=== PATIENT | female | born 1995 | race Caucasian/White ===

== ENCOUNTER 2024-12-11 23:26 | Emergency (ER) | payer MEDICAID, SELFPAY ==
--- NOTE | ~2024-12-11 | CT_ITS ---
CLINICAL INDICATION: Epigastric pain COMPARISON: None. TECHNIQUE: Multiple contiguous axial images of the abdomen and pelvis were performed following the ad ministration of with 100 mL Omnipaque-350 intravenous contrast The dose-length product (DLP) was 1352.44 mGy-cm. Automated exposure control and iterative reconstruction technique were employed. FINDINGS/OBSERVATIONS: Visualized lower thorax: The bilateral lung bases are clear. The heart is of normal size, without pericardial effusion. Small hiatal hernia is present. Liver: The liver enhances homogeneously and is enlarged measuring 19 cm in longitudinal dimension. Gallbladder and biliary system: The gallbladder is distended, with surrounding inflammatory change. No gallbladder wall thickening or pericholecystic fluid. Pancreas: The pancreas enhances homogeneously without ductal dilatation. Spleen: The spleen enhances homogeneously and is not enlarged measuring 8 cm in longitudinal dimension. Kidneys: The bilateral kidneys enhance symmetrically without hydronephrosis or renal calculi. Adrenal glands: Unremarkable. Gastrointestinal tract: Trace fecal stasis. Appendix: The air-filled appendix is of normal caliber (axial series, images 134 through 146). Vasculature: Unremarkable. Lymph nodes: No pathologically enlarged or morphologically suspicious lymph nodes within the retroperitoneum or at the root of the mesentery. Pelvic structures: The bladder is distended, and otherwise unremarkable. The uterus is anteverted and anteflexed Body wall and musculoskeletal: Small fat-containing umbilical hernia. Recent Pfannenstiel incision demonstrates inflammatory change along the anterior margin of the lower abdomen, without periprocedural seroma. No significant degenerative disease within the lower thoracic or lumbosacral spine. IMPRESSION: Findings consistent with biliary colic versus acute cholecystitis, as detailed above. Hepatic enlargement. Reviewed, dictated and finalized at location A. K PILER
--- NOTE | ~2024-12-11 | XR_ITS ---
CHEST RADIOGRAPH CLINICAL HISTORY: epigastric pain . COMPARISON: None available TECHNIQUE: Single portable view of the chest. FINDINGS The cardiomediastinal silhouette is unremarkable. The lungs are clear. Visualized osseous structures and soft tissues are unremarkable. IMPRESSION: No focal infiltrate or effusion. Reviewed, dictated and finalized at location A. NICS TEST TECHNICIAN
[2024-12-11 23:43] VITALS: BP 130/90; PULSE 88; RESP 18; TEMP 36.6; O2SAT 100
[2024-12-12 00:06] VITALS: BP 128/87; PULSE 83; RESP 15; O2SAT 100
--- OUTSIDE RECORDS SUMMARY | 2024-12-12 02:05 | XMS_ITS | Clinical Summary ---
Author Organization [facility] Address [address] [place] [address] Care Team Providers Care Janitorial Manager Name Role Phone No, Physician Primary Care Provider [phone] Allergies No known active allergies Social History Tobacco Use Types Packs/Day Years Used Date Smoking Tobacco: Never Assessed Personal Safety Answer Date Recorded Have you ever been in or are you currently in a harmful physical or emotional relationship or is someone making you feel afraid or unsafe? Denies 05/21/2024 Comments Unknown Sex and Gender Information Value Date Recorded Sex Assigned at Not on file Legal Sex Female 5:55 AM CDT Gender Identity Not on file Sexual Orientation Not on file Last Filed Vital Signs Vital Sign Reading Time Taken Comments Blood Pressure 122/94 05/21/2024 5:59 AM CDT Pulse 92 05/21/2024 5:57 AM CDT Temperature 36.4 C (97.5 F) 05/21/2024 5:57 AM CDT Respiratory Rate 18 05/21/2024 5:57 AM CDT Oxygen Saturation 98% 05/21/2024 5:57 AM CDT Inhaled Oxygen Concentration - - Weight 90.7 kg (200 lb) 05/21/2024 5:57 AM CDT Height 165.1 cm (5' 5 ) 05/21/2024 5:57 AM CDT Body Mass Index 33.28 05/21/2024 5:57 AM CDT Plan of Treatment Health Maintenance Due Date Last Done Comments Cervical Cancer Screening 1993 Depression Screening 1993 Hepatitis C Screening 1993 Varicella Vaccines (2 of 2 - 2-dose childhood series) 07/12/1999 04/19/1999 DTaP/Tdap/Td Vaccine (6 - Tdap) 2004 04/19/1999, 04/14/1995, 08/08/1994, Additional history exists Regular Well Visit/Exam 18-64 2011 Influenza Vaccine (#1) 2024 HPV Vaccines Aged Out No longer eligi ble based on patient's age to complete this topic Pneumococcal vaccine <65 Aged Out No longer eligible based on patient's age to complete this topic Insurance [facility] [place] [address] [place] [address] DIVISION Care Teams Janitorial Manager Relationship Specialty Start Date End Date No, Physician PCP - General 05/21/24
--- OUTSIDE RECORDS SUMMARY | 2024-12-12 02:05 | XMS_ITS | Clinical Summary ---
Author Organization [facility] Address [address] [place] [address] Phone Care Team Providers Care Fashion Model Name Role Phone Unavailable Primary Care Provider Unavailabl e Allergies No known active allergies Medications VIT-IRON FUM-FOLIC AC ORAL Take by mouth. Activ e NIFEdipine (PROCARDIA XL) 60 mg Extended Release 24 hour tablet Take 1 Tablet (60 mg) by mouth every 12 hours. 120 Tablet 1 11/16/19 25 Active Additional Information Patient taking differently:60 mg Oral EVERY 12 HOURS,Taking one a day, Reported on 11/23/2024 oxyCODONE (ROXICODONE) 5 mg tabletIndicati ons:H/O section Take 1 Tablet (5 mg) by mouth every 4 hours as needed for Pain. Max Daily Amount: 30 mg 20 Tablet 11/16/19 25 Active NIFEdipine (PROCARDIA XL) 60 mg Extended Release 24 hour tablet Take 1 Tablet (60 mg) by mouth every 12 hours. 120 Tablet 1 5 1:13 PM ELECTRONIC OPERATOR 11/16/19 25 Active oxyCODONE (ROXICODONE) 5 mg tablet Take 1 Tablet (5 mg) by mouth every 6 hours as needed. Max Daily Amount: 20 mg 15 Tablet 5 6:00 PM ELECTRONIC OPERATOR 11/17/19 25 Active famotidine (PEPCID) 10 mg tablet Take 30 mg by mouth 2 times daily. 025 Discontinued Active Problems Problem Noted Date Diagnosed Date Hypertension in , p re-eclampsia, severe, delivered/ 11/23/2024 S/P section 11/23/2024 History of delivery 11/23/2024 affected by intrau terine growth restriction (IUGR) 11/23/2024 care following delivery 10/28 Encounter for blood typing 11/14/2024 Encounters Date Type Department Care Team Description 12/08/2024 Chart Note [facility] Maternal and Medicine - [facility] [place] [address] [place] [phone] Philly Sanchez, RN 11/30/2024 Telephone [facility] M[facility] and Medicine - [facility] [place] [facility] [address] [place] [phone] Philly Sanchez, RN Blood Pressure Check 11/29/2024 Encounter [facility] [address] [place] [address] 11/29/2024 Chart Note [facility] Maternal and Medicine - Medical [place] [address] [place] [phone] Philly Sanchez RN Hypertension 11/25/2024 Encounter [facility] [address] [place] [address] 11/23/2024 10:00 AM ELECTRONIC OPERATOR Office Visit [facility] Maternal and Medicine - [facility] [place] [address] [place] [phone] Lu Friedman NP Hypertension in , pre-eclampsia, severe, delivered/ (Primary Dx); S/P section; care following delivery; History of delivery; affected by intrauterine growth restriction (IUGR) 11/22/2024 Encounter [facility] [address] [place] [address] 11/19/2024 Encounter [facility] [address] [place] [address] 11/18/2024 External Device Data [facility] ABSTRACTION Provider, Abstract 11/17/2024 External Device Data [facility] [place] Provider, Abstract 11/16/2024 External Device Data [facility] [place] Provider, Abstract 11/16/2024 External Device Data [facility] [place] Provider, Abstract 11/12/2024 9:02 PM ELECTRONIC OPERATOR Anesthesia Event [facility] Labor & [address] [place] [address] Melody Pimentel MD 11/12/2024 9:00 PM ELECTRONIC OPERATOR - 11/12/2024 10:53 PM ELECTRONIC OPERATOR Surgery [facility] [address] [place] [address] Karolina Mackenzie MD SECTION 11/11/2024 4:10 PM ELECTRONIC OPERATOR - 11/16/2024 11:30 AM ELECTRONIC OPERATOR Hospital Encounter [facility] Mother/Baby 6C [address] [place] [address] Joseph Ballard MD Encounter for blood typing Discharge Disposition: Home or Self Care 11/11/2024 2:50 PM ELECTRONIC OPERATOR - 11/11/2024 11:59 PM ELECTRONIC OPERATOR Hospital Encounter [facility] Maternal and Ground Floor [address] [place] [address] [place] [address] Joseph Ballard MD Discharge Disposition: Home or Self Care 11/11/2024 1:34 PM ELECTRONIC OPERATOR - 11/11/2024 11:59 PM ELECTRONIC OPERATOR Hospital Encounter [facility] Maternal and Ground Floor [address] [place] [address] [place] [address] Joseph Ballard MD Discharge Disposition: Home or Self Care 11/11/2024 Travel 11/04/2024 Orders Only [facility] Maternal and Ground Floor [address] [address] [place] [address] Joseph Ballard MD Dichorionic diamniotic twin in third trimester (Primary Dx); Oligohydramnios antepartum, third trimester, fetus 1 10/16/2024 10:19 AM ELECTRONIC OPERATOR - 10/16/2024 12:45 PM ELECTRONIC OPERATOR Hospital Encounter [facility] OB Triage [address] [place] [address] Joseph Ballard MD Discharge Disposition: Home or Self Care from Last 3 Months Family History Medical History Relation Name Comments Hypertension Father Stroke Father Relation Name Status Comments Father Social History Tobacco Use Types Packs/Day Years Used Date Smoking Tobacco: Former Cigarettes Tobacco Cessation:Counseling Given: Not Answered Alcohol Use Standard Drinks/Week Comments Never 0 (1 standard drink = 0.6 oz pur e alcohol) Feeling Safe Answer Date Recorded Are you in a relationship wi th someone who hurts you emotionally and/or physically? Patient unable to answer 11/11/2024 Food Insecurity Answer Date Recorded Social/Environmental Concerns No concerns Transportation Needs Answer Date Record ed Social/Environmental Concerns No concerns Housing Stability Answer Date Recorded Social/Environmental Concerns No concerns Utility Needs Answer Date Recorded Social/Environmental Concerns No concerns Comments No Sex and Gender Information Value Date Recorded Sex Assigned at Not on file Legal Sex Female 10:17 AM ELECTRONIC OPERATOR Gender Identity Not on file Sexual Orientation Not on file Last Filed Vital Signs Vital Sign Reading Time Taken Comments Blood Pressure 138/88 11/23/2024 10:16 AM ELECTRONIC OPERATOR Pulse 112 11/23/2024 10:16 AM ELECTRONIC OPERATOR Temperature 36.6 C (97.9 F) 11/16/2024 7:52 AM ELECTRONIC OPERATOR Respiratory Rate 18 11/16/2024 7:52 AM ELECTRONIC OPERATOR Oxygen Saturation 98% 11/23/2024 10: 16 AM ELECTRONIC OPERATOR Inhaled Oxygen Concentration - - Weight 114.4 kg (252 lb 3.2 oz) 025 10:16 AM ELECTRONIC OPERATOR Height 160 cm (5' 3 ) 11/11/2024 4:42 PM ELECTRONIC OPERATOR Body Mass Index 44.68 11/11/2024 4:42 PM ELECTRONIC OPERATOR Plan of Treatment Health Maintenance Due Date Last Done Comments DTAP/TDAP/TD VACCINES (6 - Tdap) 2004 04/19/1999, 04/14/1995, 08/08/1994, Additional history exists CERVICAL CANCER SCREENING 2023 INFLUENZA VACCINE (#1) 2024 HEPATITIS B VACCINES Completed 06/03/1994, 02/09/1994, 1993 HPV VACCINES Aged Out No longer eligi ble based on patient's age to complete this topic Procedures Procedure Name Priority Date/Time Associated Diagnosis Comments TELEMETRY REPORT 11/17/2024 1:01 PM ELECTRONIC OPERATOR TELEMETRY REPORT 11/17/2024 11:3 2 AM ELECTRONIC OPERATOR PATHOLOGY Pathology 11/12/2024 9:56 PM ELECTRONIC OPERATOR SC ANESTHESIA BLOCK PB PLACEHOLDER CHARGE Routine 11/12/2024 9:18 PM ELECTRONIC OPERATOR SECTION 11/12/2024 9:00 PM ELECTRONIC OPERATOR COMPREHENSIVE METABOLIC PANEL Timed Study 11/12/2024 8:09 AM ELECTRONIC OPERATOR CBC WITH DIFFERENTIAL Timed Study 11/12/2024 8:09 AM ELECTRONIC OPERATOR VERIFICATION BLOOD GROUP Stat 11/11/2024 8:30 PM ELECTRONIC OPERATOR Encounter for blood typing PREPARE RED BLOOD CELLS Routine 11/11/2024 8:24 PM ELECTRONIC OPERATOR PREPARE RED BLOOD CELLS Routine 11/11/2024 8:24 PM ELECTRONIC OPERATOR (BROTH-ENRICHED) GROUP B STREP DETECTION Routine 11/11/2024 6:31 PM ELECTRONIC OPERATOR TYPE AND SCREEN Stat 11/11/2024 6:05 PM ELECTRONIC OPERATOR CBC WITH DIFFERENTIAL Stat 11/11/2024 6:05 PM ELECTRONIC OPERATOR COMPREHENSIVE METABOLIC PANEL Stat 11/11/2024 6:05 PM ELECTRONIC OPERATOR URIC ACID Stat 11/11/2024 6:05 PM ELECTRONIC OPERATOR LACTATE DEHYDROGENASE Stat 11/11/2024 6:05 PM ELECTRONIC OPERATOR PROTEIN , RANDOM URINE Stat 11/11/2024 5:45 PM ELECTRONIC OPERATOR US MONITORING NST Routine 11/11/2024 4:13 PM ELECTRONIC OPERATOR Dichorionic diamniotic twin in third trimester Oligohydramnios antepartum, second trimester, fetus 1 IUGR (intrauterine growth restriction) affecting care of mother, first trimester, fetus 1 US OB FOLLOW UP PER FETUS Routine 11/11/2024 4:12 PM ELECTRONIC OPERATOR Dichorionic diamniotic twin in third trimester Oligohydramnios antepartum, second trimester, fetus 1 CBC WITHOUT DIFFERENTIAL Stat 10/16/2024 10:45 AM ELECTRONIC OPERATOR URINALYSIS W/REFLEX MICROSCOPIC Stat 10/16/2024 10:45 AM ELECTRONIC OPERATOR URINE CULTURE Routine 10/16/2024 10:45 AM ELECTRONIC OPERATOR VAGINOSIS/VAGINITIS PANEL BASIC Routine 10/16/2024 10:45 AM ELECTRONIC OPERATOR from Last 3 Months Results * TELEMETRY REPORT (11/17/2024 1:01 PM ELECTRONIC OPERATOR) Only the most recent of2 resultswithin the time period is included. us Provider Scanning ECG ORDERABLES Final Result * PATHOLOGY (11/12/2024 9:56 PM ELECTRONIC OPERATOR) CASE REPORT Surgical Pathology Report Case: [id number] Authorizing Provider: Karolina Mackenzie MD Collected: 11/12/2024 09:56 PM Ordering Location: [facility] Received: 11/15/2024 08:25 AM Labor & Pathologist: Karolina Bright MD Specimens: A) - Placenta B) - Placenta 2:15 PM ELECTRONIC OPERATOR [facility] - [facility] FINAL DIAGNOSIS Placenta, single clamped baby B, section: - 1 of separate, diamniotic dichorionic twin placentas with three-vessel umbilical cord and mature chorionic villi with 10% circummargination - Intervillous thrombohematomas x 2 (0.4 and 0.5 cm), representing less than 5% of placenta - Placental weight of 305 g in the 10th percentile for gestational age Placenta, no clamp baby A, section - 1 of separate, diamniotic dichorionic twin placentas with three-vessel umbilical cord and mature chorionic villi with 10% circummargination - Villous infarctions x 3, representing less than 5% of placenta - Placental weight of 219 g less than 10th percentile for gestational age 01 2:15 PM ELECTRONIC OPERATOR [facility] [employer] [facility] at 1415 ELECTRONIC OPERATOR GROSS DESCRIPTION Received is a single container labeled Luda Saavedra, placenta and additionally labeled no micro is a di/di twin placenta with 2 separate discs. No dividing membranes are definitively identified. The umbilical cords are differentiated by a single plastic clamp on 1 cord and no clamp on the other cord. The disc with the single clamped umbilical cord is 18.5 x 14 x 3.5 cm with a trimmed weight of 305 g that includes the attached umbilical cord. The 17 cm long by 1.2 to 1.8 cm in diameter umbilical cord displays normal torsion, contains 3 vessels, and has an eccentric insertion that is 2 cm from the nearest placental margin. There are 2 pieces of edematous single clamped cord in the container that are 8 cm in length by 1.8 to 2.2 cm in diameter and 17.5 cm in length by 1.4 to 1.6 cm in diameter. The potts-pink, translucent, glistening membranes have a 90% marginal insertion, 10% circummarginate insertion, and a point of rupture that is 1.5 cm from the nearest disc edge. The surface is bluegray and unremarkable. The maternal surface has a few superficial areas of disruption, however when reconstructed appears complete. Sectioning reveals red, congested, spongy parenchyma with 2, white-potts parenchymal lesions that are 0.5 and 0.8 cm in greatest dimension. The lesions occupy less than 5% of the parenchyma. Etiquette Teacher sections are submitted as follows: A1-membranes and umbilical cord; A2-parenchymal lesion; A3 and A4-central placenta. The disc with the unclamped umbilical cord is 20 x 15 x 2.5 cm with a trimmed weight of 219 g, including the attached umbilical cord. The umbilical cord is 12.5 cm in length by 1 cm in diameter, displays normal torsion, contains 3 vessels, and has an eccentric insertion that is 1 cm from the nearest placental margin. There are 2 additional pieces of unclamped cord in the container that are 22 cm in length by 1 cm in diameter and 5 cm in length by 1.2 cm in diameter. The pink-red, translucent, glistening membranes have a 90% marginal insertion, 10% circummarginate insertion, and a point of rupture that is 1.5 cm from the nearest disc edge. The surface is blue to pink-lagunas and unremarkable. The maternal surface has a few superficial areas of disruption, however when reconstructed appears complete. There are 3 yellow-potts, flat, rubbery maternal surface lesions that are 0.8, 1.2, and 1.5 cm in greatest dimension, have a thickness of 0.4 to 0.5 cm and occupy 5% or less of the parenchyma. Sectioning reveals red, congested, spongy parenchyma with no discrete parenchymal lesions. Etiquette Teacher sections are submitted as follows: B1-membranes and umbilical cord; B2-maternal surface lesion; B3 and B4-central placenta. [facility] 5 2:15 PM [facility] MICROSCOPIC DESCRIPTION The slides are labeled [id number] and Luda Saavedra. Sections from the single clamp umbilical cord confirm 3 vessels without inflammation. The amnion and chorion lack inflammation. The villi are mature and without inflammation. The parenchymal lesion is a thrombohematoma. The remaining villi are mature and without inflammation. Sections from the unclamped umbilical cord also confirm 3 vessels without inflammation. The amnion and chorion lack inflammation. There is a subdecidual villous infarction. The remaining villi are mature and without inflammation. 5 2:15 PM ELECTRONIC OPERATOR [facility] OPERATIVE PROCEDURE 1: SECTION 5 2:15 PM ELECTRONIC OPERATOR [facility] CLINICAL INFORMATION A IUP@33w3d. Primary c/s for Pre-E w Severe features Baby A - no clamps Baby B - 1 clamp IUP@33w3d. Primary c/s for Pre-E w Severe features Baby A - no clamps Baby B - 1 clamp 5 2:15 PM ELECTRONIC OPERATOR [facility] COMMENT Special stain, immunohistochemical, and/or in situ hybridization results are interpreted with controls that demonstrate appropriate staining reactions. Note on use of immunohistochemistry reagents and in situ hybridization probes: These tests were developed and their performance characteristics determined by [facility], Department of Laboratory Medicine. It has not been cleared or approved by the U.S. Food and Drug Administration. The FDA has determined that such clearance or approval is not necessary. The test is used for clinical purposes. It should not be regarded as investigational or for research. This laboratory is certified to perform high complexity testing. Frozen section/operating room consultation, gross examination and dissection, and case sign out may have been performed in part or completely in the following laboratories: [facility], CLIA #[id number] [address] [place] [address] [facility], [place] #[id number] [address] [place] [address] [facility], CLIA #[id number] [address] [place] [address] This report was created with the [employer] voice-activated dictation system. Inherent to this system is the possibility of syntax, grammar, punctuation and other errors that could impact the interpretation of the report. If there are interpretative questions about aspects of this report, please contact the performing pathologist. 2:15 PM ELECTRONIC OPERATOR [facility] Tissue SPECIMEN FROM PLACENTA / Unknown Collection / Unknown 11/12/2024 9:56 PM ELECTRONIC OPERATOR 11/15/2024 8:25 AM ELECTRONIC OPERATOR Comment:IUP@33w3d. Primary c /s for Pre-E w Severe features Baby A - no clamps Baby B - 1 clamp Tissue specimen (specimen) SPECIMEN FROM PLACENTA / Unknown 11/12/2024 9:56 PM ELECTRONIC OPERATOR 11/15/2024 8:26 AM ELECTRONIC OPERATOR Karolina Mackenzie MD PATHOLOGY/CYTOLOGY ORDERABLES Final Result [id number] [address] [place] [address] * SC ANESTHESIA BLOCK PB PLACEHOLDER CHARGE (11/12/2024 9:18 PM ELECTRONIC OPERATOR) Narrative Gregory Scales CRNA - 11/12/2024 9:18 PM ELECTRONIC OPERATOR Gregory Scales CRNA 11/12/2024 9:18 PM Spinal Block Patient location during procedure: OB Reason for block: primary anesthetic Staffing Performed: SPANISH INSTRUCTOR/CAA Authorized by: Melody Piemntel MD Performed by: Gregory Scales CRNA Preanesthetic Checklist Completed: patient identified, IV checked, risks and benefits discussed, surgical consent, monitors and equipment checked, pre-op evaluation and timeout performed Spinal Hand hygiene performed prior to procedure Patient was prepped and draped in usual sterile fashion Time out performed Mask worn Patient position: Sitting Prep: ChloraPrep and site prepped and draped Local Anesthetic: Lidocaine 1% without epinephrine Patient monitoring: Continuous pulse oximetry, EKG and Non-invasive blood pressure Approach: Midline Location: L3-4 Injection Technique: Single-shot Davidson Identification: palpation technique Number of Attempts: 1 Spinal Needle Needle type: Pencil-tip Needle gauge: 25 G Needle length: 9 cmCSF visualized Assessment Sensory Level: T6 No paresthesia Events: easy and well tolerated Outcome: Complete Secured with: N/A Melody Pimentel MD PROCEDURE/MINOR SURGICAL ORDERAB LES Final Result * (ABNORMAL) CBC WITH DIFFERENTIAL (11/12/2024 8:09 AM ELECTRONIC OPERATOR) Only the most recent of2 resultswithin the time period is included. WBC 11.4(H) 4.0 - 9.8 K/uL 11/12/2024 8:[address] [facility] RBC 3.94 3.90 - 4.90 M/uL 11/12/2024 8:[address] [facility] HEMOGLOBIN 11.3(L) 11.8 - 14.8 g/dL 11/12/2024 8:[address] [facility] HEMATOCRIT 34.3(L) 35.5 - 44.0 % 11/12/2024 8:[address] [facility] MCV 87.1 82.0 - 99.0 fL 11/12/2024 8:[address] [facility] MCH 28.7 27.2 - 32.6 pg 11/12/2024 8:[address] [facility] MCHC 32.9 31.5 - 35.5 g/dL 11/12/2024 8:[address] [facility] RDW 13.2 11.5 - 14.5 % 11/12/2024 8:28 AM ELECTRONIC OPERATOR [email or web address] LABORATORY SERVICES - . [facility] RDW-STDEV 41.8 37.1 - 48.7 fL 11/12/2024 8:28 AM [facility] [email or web address] LABORATORY SERVICES - . [place] PLATELETS 206 140 - 350 K/uL 11/12/2024 8:28 AM [facility] [email or web address] LABORATORY SERVICES - [facility] MPV 13.0(H) 9.3 - 12.4 fL 11/12/2024 8:28 AM [facility] [email or web address] LABORATORY SERVICES - . [place] NEUTROPHILS 92 % 11/12/2024 8:28 AM [facility] [email or web address] LABORATORY SERVICES - [facility] [place] LYMPHOCYTES 7 % 11/12/2024 8:28 AM ELECTRONIC OPERATOR [email or web address] LABORATORY SERVICES - [facility] [place] MONOCYTES 1 % 11/12/2024 8:28 AM ELECTRONIC OPERATOR [email or web address] LABORATORY SERVICES - . [place] EOSINOPHILS 0 % 11/12/2024 8:28 AM [facility] [email or web address] LABORATORY SERVICES - [facility] [place] BASOPHILS 0 % 11/12/2024 8:28 AM ELECTRONIC OPERATOR [email or web address] LABORATORY SERVICES - . [facility] IMMATURE GRANULOCYTES 1 % 11/12/2024 8:28 AM [facility] [email or web address] LABORATORY SERVICES - . [facility] Comment:IG (Immature Granulo cyte) count includes Metamyelocytes, Myelocytes, and Promyelocytes NEUTROPHIL ABSOLUTE 10.45(H) 1.90 - 7.00 K/uL 11/12/2024 8:28 AM [facility] [email or web address] LABORATORY SERVICES - . [facility] LYMPHOCYTE ABSOLUTE 0.78 0.70 - 4.50 K/uL 11/12/2024 8:28 AM ELECTRONIC OPERATOR [email or web address] LABORATORY SERVICES - . [facility] MONOCYTE ABSOLUTE 0.12 0.10 - 1.30 K/uL 11/12/2024 8:28 AM ELECTRONIC OPERATOR [email or web address] LABORATORY SERVICES - [facility] [place] EOSINOPHIL ABSOLUTE 0.00 0.00 - 0.70 K/uL 11/12/2024 8:28 AM [facility] LABORATORY SERVICES - [facility] [place] BASOPHILS ABSOLUTE 0.01 0.00 - 0.20 K/uL 11/12/2024 8:28 AM [facility] [email or web address] LABORATORY SERVICES - . [facility] IMMATURE GRANULOCYTES ABSOLUTE 0.06(H) 0.00 - 0.03 K/uL 11/12/2024 8:28 AM [facility] [email or web address] LABORATORY SERVICES [facility]. [facility] Blood Venipuncture / Unknown 11/12/2024 8:09 AM ELECTRONIC OPERATOR 11/12/2024 8:15 AM ELECTRONIC OPERATOR Joseph Ballard MD HEMATOLOGY ORDERABLES Final Result [facility] [employer] [id number] [address] [place] [address] * (ABNORMAL) COMPREHENSIVE METABOLIC PANEL (11/12/2024 8:09 AM ELECTRONIC OPERATOR) Only the most recent of2 resultswithin the time period is included. SODIUM 135(L) 136 - 145 mmol/L 11/12/2024 9:10 AM [facility] [email or web address] LABORATORY SERVICES - . [facility] POTASSIUM 4.2 3.5 - 5.0 mmol/L 11/12/2024 9:10 AM [facility]. [facility] CHLORIDE 104 98 - 107 mmol/L 11/12/2024 9:10 AM [facility]. [place] CO2 17(L) 22 - 29 mmol/L 11/12/2024 9:10 AM [facility] CALCIUM 8.5(L) 8.6 - 10.2 mg/dL 11/12/2024 9:10 AM [facility]. [facility] BUN 5(L) 6 - 20 mg/dL 11/12/2024 9:[address] [facility] [employer] [facility]. [facility] CREATININE 0.42(L) 0.51 - 0.95 mg/dL 11/12/2024 9:10 AM [facility]. [facility] GLUCOSE 139(H) 74 - 99 mg/dL 11/12/2024 9:10 AM [facility]. [facility] TOTAL PROTEIN 6.4(L) 6.7 - 8.6 g/dL 11/12/2024 9:10 AM [facility]. [facility] ALBUMIN 3.4(L) 3.5 - 5.2 g/dL 11/12/2024 9:10 AM [facility] [employer] [facility]. [facility] BILIRUBIN TOTAL <0.2(L) 0.3 - 1.2 mg/dL 11/12/2024 9:10 AM [facility] ALKALINE PHOSPHATASE 205(H) 35 - 104 U/L 11/12/2024 9:10 AM [facility] AST 25 <33 U/L 11/12/2024 9:10 AM [facility] Comment:Hemolysis present. R esult may be falsely elevated. ALT 13 <34 U/L 11/12/2024 9:10 AM [facility] GFR >60 >=60 mL/min/1.7 3 sq meter 11/12/2024 9:10 AM [facility] Comment:eGFR calculated with 2020 CKD-EPI equation. Vegetarian diet, extremely high or low muscle mass, and may affect results. Cystatin C with Glomerular Filtration Rate is a suitable alternative for these patients. ANION GAP 14 8 - 16 mmol/L 11/12/2024 9:10 AM [facility] Blood Venipuncture / Unknown 11/12/2024 8:09 AM ELECTRONIC OPERATOR 11/12/2024 8:15 AM ELECTRONIC OPERATOR Narrative [facility] - 11/12/2024 9:10 AM ELECTRONIC OPERATOR Samples containing indocyanine green cause interferences on Total and/or Direct Bilirubin and must not be measured. Joseph Ballard MD CHEMISTRY ORDERABLES F inal Result [facility]# [id number] 5 [facility] [place] [id number] * VERIFICATION BLOOD GROUP (11/11/2024 8:30 PM ELECTRONIC OPERATOR) ABO GROUP O 11/11/2024 9:54 PM [facility] RH (D) TYPE Positive 11/11/2024 9:54 PM [facility] Blood Venipuncture / Unknown 11/11/2024 8:30 PM ELECTRONIC OPERATOR 11/11/2024 8:37 PM ELECTRONIC OPERATOR Yoon Inman MD BLOOD BANK ORDERABLES Final Result Performing Organization Address [facility]/ZIP Co de Phone Number [facility] SERVICES -- [facility]# [id number] [address] [place] [address] * PREPARE RED BLOOD CELLS (11/11/2024 8:24 PM ELECTRONIC OPERATOR) Only the most recent of2 resultswithin the time period is included. Pathologist [facility] COMPONENT TYPE [id number] [facility] SERVICES -- [facility] COMPONENT IDENTIFICATION [id number] [facility] -- [facility] UNIT ABO O [facility] -- [facility] UN[facility] RH POS [facility] SERVICES -- [facility] CROSSMATCH Compatible [facility] SERVICES -- [facility] COMPONENT STATUS Returned [facility] LABORATORY SERVICES -- [facility] COMPONENT EXPIRATION DATE/TIME [facility] -- [facility] COMPONENT CODING SYSTEM 5100 [facility] -- [facility] VOLUME, BLOOD PRODUCT 350 [facility] -- [facility] 11/11/2024 8:24 PM ELECTRONIC OPERATOR Joseph Ballard MD LAB TRANSFUSION ORDERA BLES Edited Result - Final Performing Organization Address [facility] Co de Phone Number [facility] [id number] [address] [place] [address] * (ABNORMAL) (BROTH-ENRICHED) GROUP B STREP DETECTION (11/11/2024 6:31 PM ELECTRONIC OPERATOR) [facility] STREPTOCOCCUS GROUP B AMPLIFIED PROBE RESULT Detected( A) Not Detected 11/12/2024 4:19 PM ELECTRONIC OPERATOR [facility] SERVICES - [facility] Genital (Vaginal/rectal) Collection / Unknown 11/11/2024 6:31 PM ELECTRONIC OPERATOR 11/11/2024 6:40 PM ELECTRONIC OPERATOR Narrative [facility] SERVICES - [facility] - 11/12/2024 4:19 PM ELECTRONIC OPERATOR Results called to Ileana Alfredo RN (STLO Antepartum 7) on 11/12/2024 at 4:19 PM and read back verified. Streptococcus Group B is predictably susceptible to ampicillin, penicillin, and cefazolin, but may be resistant to erythromycin and/or clindamycin. This test was developed and its performance characteristics determined by [facility]. It has not been cleared by U.S. Food and Drug Administration.The FDA has determined that such clearance or approval is not necessary. This test is used for clinical purposes. It should not be regarded as investigational or for research.This laboratory is certified under the Clinical Laboratory Improvement Amendments of 1988 (CLIA-88) as qualified to perform high complexity clinical laboratory testing. Joseph Ballard MD MICROBIOLOGY - GENERAL ORDERABLES Final Result Performing Organization Address [facility]/ZIP Co de Phone Number [facility] CLIA# [id number] [address] [place] [address] * TYPE AND SCREEN (11/11/2024 6:05 PM ELECTRONIC OPERATOR) ABO GROUP O 11/11/2024 8:39 PM ELECTRONIC OPERATOR [facility] -- [facility] RH (D) TYPE Positive 11/11/2024 8:39 PM ELECTRONIC OPERATOR [facility] [facility] -- [facility] ANTIBODY SCREEN Negative 11/11/2024 8:39 PM ELECTRONIC OPERATOR [facility] Blood Venipuncture / Unknown 11/11/2024 6:05 PM ELECTRONIC OPERATOR 11/11/2024 6:27 PM ELECTRONIC OPERATOR Joseph Ballard MD BLOOD BANK ORDERABLES Edited Result - Final [facility] CLIA# [id number] [address] [id number] * URIC ACID (11/11/2024 6:05 PM ELECTRONIC OPERATOR) URIC ACID 4.6 2.4 - 5.7 mg/dL 11/11/2024 7:25 PM ELECTRONIC OPERATOR [facility] [facility] - [facility] Blood Venipuncture / Unknown 11/11/2024 6:05 PM ELECTRONIC OPERATOR 11/11/2024 6:27 PM ELECTRONIC OPERATOR Joseph Ballard MD CHEMISTRY ORDERABLES F inal Result Performing Organization Address City/[facility]/ZIP Co de Phone Number [facility] [facility] CLIA# [id number] [address] [place] [address] * (ABNORMAL) LACTATE DEHYDROGENASE (11/11/2024 6:05 PM ELECTRONIC OPERATOR) LD (LACTATE DEHYDROGENASE) 234(H) 135 - 214 U/L 11/11/2024 7:25 PM ELECTRONIC OPERATOR [facility] Blood Venipuncture / Unknown 11/11/2024 6:05 PM ELECTRONIC OPERATOR 11/11/2024 6:27 PM ELECTRONIC OPERATOR Joseph Ballard MD CHEMISTRY ORDERABLES F inal Result Performing Organization Address [facility]/ZIP Co de Phone Number [facility] [employer] [facility] CLIA# [id number] [address] [place] [address] * (ABNORMAL) PROTEIN/CREATININE RATIO, URINE (11/11/2024 5:45 PM ELECTRONIC OPERATOR) Pathologist [facility] PROTEIN CONCENTRATION 78(H) 0 - 20 mg/dL 11/11/2024 7:09 PM ELECTRONIC OPERATOR [facility] CREATININE, URINE 35.7 29.0 - 226.0 mg/dL 11/11/2024 7:09 PM ELECTRONIC OPERATOR [facility] [facility] Comment:Reference Range vari es with fluid intake and diet. PROTEIN/CREAT RATIO, URINE 2.18(H) 0.00 - 0.19 mg/mg Creatinine 11/11/2024 7:09 PM ELECTRONIC OPERATOR [facility] Urine URINE SPECIMEN OBTAINED BY CLEAN CATCH PROCEDURE / Unknown Collection / Unknown 11/11/2024 5:45 PM ELECTRONIC OPERATOR 11/11/2024 6:41 PM ELECTRONIC OPERATOR Narrative [facility] - 11/11/2024 7:09 PM ELECTRONIC OPERATOR The ACOG 2013 Guidelines recommend using a cutoff of >/= 0.30 protein/creatinine ratio for the diagnosis and management of preeclampsia. Joseph Ballard MD URINE ORDERABLES Final Result [facility]# [id number] [address] [place] [place] [address] * US MONITORING NST (11/11/2024 4:13 PM ELECTRONIC OPERATOR) Anatomical Region Laterality Modality Ultrasound 11/11/2024 3:38 PM ELECTRONIC OPERATOR Narrative 11/11/2024 3:57 PM ELECTRONIC OPERATOR [facility] NST ----- Pat. Name: LUDA SAAVEDRA Study Date: 11/11/2024 3:38pm Pat. NO: [id number] Referring MD: Site: [facility] Tape Controlled Machine Stitcher: : 1995 Age: 28 ----- INDICATION ----- Twin , Dichorionic/Diamniotic (Di/Di) Small for Dates Maternal Obesity (BMI>40) Complicating CODING ----- Diagnoses Z3A.33: Weeks of gestation O36.5930: Maternal care for other known or suspected poor growth O30.043: Twin , dichorionic/diamniotic O99.213: Obesity complicating Procedures 55698: NST/ monitoring 97470: NST/ monitoring MATERNAL ASSESSMENT ----- Physical Exam Blood pressure 145/99 mmHg. Heart rate 84 bpm Blood Pressure Profile: Right arm: # 1 149/90 mmHg, MAP 109.7 mmHg METHOD ----- EFM ----- Twin . Number of fetuses: 2 DATING ----- GA by prior assessment 33 w + 1 d KYLEE by prior assessment: 12/29/2024 Method of dating: Restore dating from previous exam Assigned: based on stated KYLEE, selected on 11/11/2024 Assigned GA 33 w + 1 d Assigned KYLEE: 12/29/2024 Fetus 1: NON STRESS TEST ----- NST interpretation: reactive. Test duration 34 min. Baseline FHR 145 bpm. Baseline variability: moderate. Accelerations: Present. Decelerations: Not present. Uterine activity: absent Fetus 2: NON STRESS TEST ----- NST interpretation: reactive. Test duration 34 min. Baseline FHR 145 bpm. Baseline variability: moderate. Accelerations: Present. Decelerations: Not present. Uterine activity: absent COMMENT ----- Nursing notes: Patient reports positive movement x 2 and no bleeding, leaking or saniya. Elevated BPx2. Patient denies headache, visual disturbances or swelling. The patient states this is a new finding for her. Dr. Worthy at patient's bedside to discuss plan of care. Plan for patient to be admitted to antepartum at this time. Dr. Ballard notified of patient's admission; charge nurse notified. IMPRESSION ----- 1. Twin dichorionic diamniotic twin with a gestational age of 33w 1d , based on the reported clinical dates. 2. NST reactive for A and B. Patient with mild range Bp elevation. No history of CHTN. Given FGR with elevated BP in twin , recommend admission for BP monitoring and preeclampsia evaluation. Consult for FGR was not completed in the [facility] since patient is being admitted. Please request inpatient MFM consultation inpatient if assistance in care is desired. Thank you for allowing us to participate in the care of this patient. Procedure Note Loyd Worthy MD - 11/11/2024 FATOU AIDN ----- Pat. Name:Maryanne SAAVEDRA Date:11/11/2024 3:38pm Pat. NO: [id number] MD: [facility]Félixographer: :1995Age:28 ----- INDICATION ----- Twin , Dichorionic/Diamniotic (Di/Di) Small for Dates Maternal Obesity (BMI>40) Complicating CODING ----- Diagnoses Z3A.33: Weeks of gestation O36.5930: Maternal care for other known orsuspected poor growth O30.043: Twin , dichorionic/diamniotic O99.213: Obesity complicating Procedures 22067: NST/ monitoring 96840: NST/ monitoring MATERNAL ASSESSMENT ----- Physical Exam Blood pressure 145/99 mmHg. Heart rate 84 bpm Blood Pressure Profile: Right arm: # 1 149/90 mmHg, MAP 109.7 mmHg METHOD ----- EFM ----- Twin . Number of fetuses: 2 DATING ----- GA by prior [id number] w + 1 d KYLEE by prior assessment:12/29/2024 Method of dating:Restore dating from previous exam Assigned:based on stated KYLEE, selected on 11/11/2024 Assigned GA33 w + 1 d Assigned KYLEE:12/29/2024 Fetus 1: NON STRESS TEST ----- NST interpretation: reactive. Test duration 34 min. Baseline FHR 145 bpm.Baseline variability: moderate. Accelerations: Present. Decelerations: Not present. Uterine activity: absent Fetus 2: NON STRESS TEST ----- NST interpretation: reactive. Test duration 34 min. Baseline FHR 145 bpm.Baseline variability: moderate. Accelerations: Present. Decelerations: Not present. Uterine activity: absent COMMENT ----- Nursing notes: Patient reports positive movement x 2 and nobleeding, leaking or saniya. Elevated BPx2. Patient denies headache, visual disturbances or swelling. The patient states this is anew finding for her. Dr. Worthy at patient's bedside to discuss plan of care. [facility] notified of patient's admission; charge nurse notified. IMPRESSION ----- 1. Twin dichorionic diamniotic twin with a gestational age of33w 1d , based on the reported clinical dates. 2. NST reactive for A and B. Patient with mild range Bp elevation. No history of CHTN. Given FGR with elevated BP in twin , recommend admission for BPmonitoring and preeclampsia evaluation. Consult for FGR was not completed in the [facility] since patient is beingadmitted. Please request inpatient MFM consultation inpatient if assistance in care is desired. Thank you for allowing us to participate in the care of this patient. us Joseph Ballard MD US ORDERABLES Final Result * US OB FOLLOW UP PER FETUS (11/11/2024 4:12 PM ELECTRONIC OPERATOR) Anatomical Region Laterality Modality Pelvis Ultrasound Narrative 11/11/2024 2:55 PM ELECTRONIC OPERATOR ST[facility] FOLLOW UP ----- Pat. Name: LUDA SAAVEDRA Study Date: 11/11/2024 1:46pm Pat. NO: [id number] Referring MD: Site: [facility] Tape Controlled Machine Stitcher: Doris Booth RDMS : 1995 Age: 28 ----- INDICATION ----- Twin , Dichorionic/Diamniotic (Di/Di) Small for Dates Baby A 13% on 11/03 scan Maternal Obesity (BMI>40) Complicating CODING ----- Diagnoses Z3A.33: Weeks of gestation O36.5930: Maternal care for other known or suspected poor growth O30.043: Twin , dichorionic/diamniotic O99.213: Obesity complicating Procedures 01379: Ultrasound, uterus, real time with image documentation, follow up, transabdominal approach per fetus. 2 54514: Umbilical Artery Doppler. 1 MATERNAL ASSESSMENT ----- Physical Exam Weight 111 kg. BMI 43.40 kg/m METHOD ----- Transabdominal ultrasound examination ----- Twin . Number of fetuses: 2 DATING ----- Method of dating: based on stated KYLEE GA by prior assessment 33 w + 1 d KYLEE by prior assessment: 12/29/2024 Ultrasound examination on: 11/11/2024 GA by U/S based upon: AC, BPD, EFW, Femur, HC GA by U/S 31 w + 4 d KYLEE by U/S: 01/09/2025 GA by U/S based upon (Fetus 2): AC, BPD, EFW, Femur, HC GA by U/S (Fetus 2) 32 w + 5 d KYLEE by U/S (Fetus 2): 01/01/2025 Assigned: based on stated KYLEE, selected on 11/11/2024 Assigned GA 33 w + 1 d Assigned KYLEE: 12/29/2024 Fetus 1: BIOMETRY ----- BPD 76.9 mm 30w 6d 2% Hadlock OFD 108.1 mm 35w 5d 94% Calos HC 301.0 mm 33w 3d 20% Hadlock AC 266.8 mm 30w 6d 4% Hadlock Femur 61.2 mm 31w 5d 10% Hadlock HC / AC 1.13 90% Nicolaides Weight Calculation: EFW 1,751 g 31w 0d 6% Hadlock EFW (lb,oz) 3 lb 14 oz EFW by Hadlock ([id number]) EFW discordance 14.9 % Extremities / Bony Struc Biometry: FL / BPD 0.80 FL / HC 0.20 FL / AC 0.23 Fetus 2: BIOMETRY ----- BPD 78.7 mm 31w 4d 8% Hadlock OFD 112.0 mm 38w 0d >99% Calos HC 306.2 mm 34w 1d 37% Hadlock AC 291.5 mm 33w 1d 52% Hadlock Femur 62.1 mm 32w 1d 16% Hadlock HC / AC 1.05 50% Nicolaides Weight Calculation: EFW 2,057 g 32w 3d 32% Hadlock EFW (lb,oz) 4 lb 9 oz EFW by Hadlock ([id number]) EFW discordance 14.9 % Head / Face / Neck Biometry: Outer IOD 49.6 mm 31w 0d 7% Calos Extremities / Bony Struc Biometry: FL / BPD 0.79 FL / HC 0.20 FL / AC 0.21 Fetus 1: GENERAL EVALUATION ----- Cardiac activity present. FHR 141 bpm. movements: present. Presentation: oblique inferior, left Placenta: posterior Umbilical cord: Cord vessels: 3 vessel cord. Insertion site: placental insertion: normal Amniotic fluid: Amount of AF: normal amount. MVP 3.1 cm Fetus 2: GENERAL EVALUATION ----- Cardiac activity present. FHR 145 bpm. movements: present. Presentation: transverse top Placenta: anterior Umbilical cord: Cord vessels: 3 vessel cord. Insertion site: placental insertion: normal Amniotic fluid: Amount of AF: normal amount. MVP 3.4 cm Fetus 1: DOPPLER ----- Umbilical Artery: PI 1.18 93% Brian RI 0.72 92% Brian PS 42.70 cm/s 23% Ebbing ED 11.26 cm/s TAmax 25.25 cm/s 10% Ebbing MD 10.77 cm/s S / D 3.51 90% Brian HR 161 bpm Fetus 1: ANATOMY ----- The following structures appear normal: Head / Neck Cranium. Heart / Thorax Cardiac rhythm. Diaphragm. Abdomen Stomach. Kidneys. Bladder. Fetus 2: ANATOMY ----- The following structures appear normal: Head / Neck Cranium. Midline falx. Cavum septi pellucidi. Cerebellum. Cisterna magna. Heart / Thorax 4-chamber view. Diaphragm. Abdomen Stomach. Kidneys. Bladder. Fetus 1: GROWTH OVERVIEW ----- Exam date GA BPD (mm) HC (mm) AC (mm) FL (mm) HL (mm) EFW (g) 11/11/2024 33w 1d 76.9 2% 301.0 20% 266.8 4% 61.2 10% 1,751 6% Fetus 2: GROWTH OVERVIEW ----- Exam date GA BPD (mm) HC (mm) AC (mm) FL (mm) HL (mm) EFW (g) 11/11/2024 33w 1d 78.7 8% 306.2 37% 291.5 52% 62.1 16% 2,057 32% COMMENT ----- Patient's name and date of were verified by the lab head prior to the exam IMPRESSION ----- -Dichorionic diamniotic twin living fetuses with a gestational age of 33w1d based on the reported dates. Fetus A: -Fetus A EFW of 6% with an AC of 4%. Growth restriction is present. -Umbilical artery doppler PI, RI and S/D are appropriate for gestational age. -The MVP of A is 3.1 cm which is normal for gestational age -Unremarkable limited anatomy for A -Placenta is posterior -Fetus A is in oblique inferior, left presentation Fetus B: -Fetus B EFW of 32% with an AC of 52% -The MVP of B is 3.4 cm which is normal for gestational age -Unremarkable limited anatomy for B -Placenta is anterior -Fetus B is in transverse top -The intertwin discordance is 14.9 % which is within acceptable range. -Detailed anatomic surveys cannot be completed due to advanced gestational age The ultrasound findings and limitations were discussed with the patient and all questions answered. Recommend: -Growth q2 weeks -Twice weekly testing -Dopplers q2 weeks -Timing of delivery to be determined after next sonogram assessing growth Thank you for allowing us to participate in the care of this patient. Joseph Ballard MD ORDERABLES Edited Result - Final * (ABNORMAL) VAGINOSIS/VAGINITIS PANEL BASIC (10/16/2024 10:45 AM ELECTRONIC OPERATOR) TRICHOMONAS VAGINALIS BY PCR Not Detected Not Detected 10/16/2024 1:02 PM ELECTRONIC OPERATOR [facility] BACTERIAL VAGINOSIS BY PCR Detected(A) Not Detected 10/16/2024 1:02 PM ELECTRONIC OPERATOR [facility] Nakaseomyces glabrata/Pichia kudriavzevii by PCR Not Detected Not Detected 10/16/2024 1:02 PM ELECTRONIC OPERATOR [facility] Comment:Nakaseomyces glabrat a formerly Luh glabrata and Pichia mingiacornellvii formerly Luh krusei LUH SPECIES Not Detected Not Detected 10/16/2024 1:02 PM [facility] [email or web address] LABORATORY SERVICES - [facility] Comment:Luh species incl udes: C albicans, C tropicalis, C parapsilosis and C dubliniensis Genital SPECIMEN FROM VAGINA / Unknown Collection / Unknown 10/16/2024 10:45 AM ELECTRONIC OPERATOR 10/16/2024 11:13 AM ELECTRONIC OPERATOR Joseph Ballard MD MICROBIOLOGY - GENERAL ORDERABLES Final Result [facility]# [id number] [address] [place] [address] * (ABNORMAL) URINALYSIS WITH REFLEX MICROSCOPIC (10/16/2024 10:45 AM ELECTRONIC OPERATOR) COLOR UA Pale Yellow Pale to Dark Yellow 10/16/2024 11:21 AM [facility] [email or web address] LABORATORY SERVICES - [facility] CLARITY UA Slightly Cloudy(A) Clear 10/16/2024 11:21 AM [facility] [email or web address] LABORATORY SERVICES - [facility] SPECIFIC GRAVITY UA 1.005 1.003 - 1.035 10/16/2024 11:21 AM [facility] [employer] LABORATORY SERVICES [facility] PH UA 7.0 5.0 - 8.0 10/16/2024 11:21 AM [facility] [email or web address] LABORATORY SERVICES [facility] LEUKOCYTE ESTERASE UA Trace(A) Negative 10/16/2024 11:21 AM [facility] [email or web address] LABORATORY SERVICES [facility] NITRITE UA Negative Negative 10/16/2024 11:21 AM [facility] [email or web address] LABORATORY SERVICES - [facility] PROTEIN UA Negative Negative 10/16/2024 11:21 AM [facility] [email or web address] LABORATORY SERVICES - [facility] GLUCOSE UA Negative Negative 10/16/2024 11:21 AM [facility] [email or web address] LABORATORY SERVICES - [facility] KETONES UA Negative Negative 10/16/2024 11:21 AM [facility] [email or web address] LABORATORY SERVICES [facility] UROBILINOGEN UA Normal <2.0 mg/dL 11:21 AM [facility] [email or web address] LABORATORY SERVICES - [facility] BILIRUBIN UA Negative Negative 10/16/2024 11:[address] [facility] [employer] [facility] - . [place] BLOOD UA Negative Negative 10/16/2024 11:21 AM [facility] WBC UA 3-5(A) 0 - 2 /hpf 10/16/2024 11:21 AM [facility] RBC UA 0-2 0 - 2 /hpf 10/16/2024 11:21 AM [facility] [employer] [facility] BACTERIA UA 1+(A) Negative /hpf 10/16/2024 11:21 AM [facility] [employer] [facility] EPITHELIAL CELLS, URINE 6-10(A) 0 - 5 /hpf 10/16/2024 11:21 AM [facility] [employer] [facility] - . [facility] Urine URINE SPECIMEN OBTAINED BY CLEAN CATCH PROCEDURE / Unknown Collection / Unknown 10/16/2024 10:45 AM ELECTRONIC OPERATOR 10/16/2024 10:53 AM ELECTRONIC OPERATOR Joseph Ballard MD URINE ORDERABLES Final Result [facility] [employer] [facility]# [id number] [address] [facility] [place] [address] * (ABNORMAL) CBC WITHOUT DIFFERENTIAL (10/16/2024 10:45 AM ELECTRONIC OPERATOR) WBC 10.9(H) 4.0 - 9.8 K/uL 10/16/2024 11:12 AM [facility] [employer] [facility]. [facility] RBC 4.09 3.90 - 4.90 M/uL 10/16/2024 11:12 AM [facility] [employer] [facility] HEMOGLOBIN 12.0 11.8 - 14.8 g/dL 10/16/2024 11:12 AM [facility] [employer] [facility]. [facility] HEMATOCRIT 36.1 35.5 - 44.0 % 10/16/2024 11:12 AM [facility] [employer] [facility]. [facility] MCV 88.3 82.0 - 99.0 fL 10/16/2024 11:12 AM [facility] Cam[employer] [facility]. [facility] MCH 29.3 27.2 - 32.6 pg 10/16/2024 11:[address] [facility] LABORATORY SERVICES - [facility] MCHC 33.2 31.5 - 35.5 g/dL 10/16/2024 11:[address] [facility] LABORATORY SERVICES - [facility] PLATELETS 241 140 - 350 K/uL 10/16/2024 11:[address] [facility] LABORATORY SERVICES - [facility] MPV 12.7(H) 9.3 - 12.4 fL 10/16/2024 11:12 AM [facility] [employer] LABORATORY SERVICES - . [place] RDW 12.9 11.5 - 14.5 % 10/16/2024 11:12 AM [facility] [employer] LABORATORY SERVICES - [facility] RDW-STDEV 41.4 37.1 - 48.7 fL 10/16/2024 11:12 AM [facility] [employer] LABORATORY SERVICES - [facility] Blood Venipuncture / Unknown 10/16/2024 10:45 AM ELECTRONIC OPERATOR 10/16/2024 10:53 AM ELECTRONIC OPERATOR Joseph Ballard MD HEMATOLOGY ORDERABLES Final Result [facility] [employer] [facility] CLIA# [id number] [address] [place] [address] * URINE CULTURE (10/16/2024 10:45 AM ELECTRONIC OPERATOR) CULTURE Polymicrobial growth consistent with normal urethral fab and/or colonizing bacteria 10/17/2024 1:[address] [facility] Urine URINE SPECIMEN OBTAINED BY CLEAN CATCH PROCEDURE / Unknown Collection / Unknown 10/16/2024 10:45 AM ELECTRONIC OPERATOR 10/16/2024 10:53 AM ELECTRONIC OPERATOR Joseph Ballard MD MICROBIOLOGY - GENERAL ORDERABLES Final Result [facility] CLIA# [id number] [address] [place] [address] from Last 3 Months Insurance [facility] [id number] RX [employer] Medicaid
--- OUTSIDE RECORDS SUMMARY | 2024-12-12 02:05 | XMS_ITS | Referral Summary ---
Author Organization [facility] al Address [address] [place] [address] Care Team Providers Care Kiln Charger Name Role Phone No, Physician Primary Care Provider [phone] Allergies No known active allergies Social History [...] 05/21/2024 5:57 AM CDT Plan of Treatment Not on file Insurance [place] [employer] [place] [employer] Care Teams Kiln Charger Relationship Specialty Start Date End Date No, Physician PCP - General 05/21/24
--- NOTE | 2024-12-12 02:09 | PC.NURSE ---
Pt refused IV, zofran, and fluids. pt states I just had an IV and i just want to get blood
[2024-12-12 02:11] VITALS: BP 130/84; PULSE 86; RESP 19; O2SAT 99
[2024-12-12 02:23] LABS: Basophils Percent Auto 0.3 % (0.2-1.2); Hematocrit 36.8 % (37.0-47.0); Hemoglobin 11.9 g/dL (12.0-15.0); Immature Granulocyte Absolute 0.02 K/mm3 (0.00-0.031); Immature Granulocyte Percent A 0.2 % (0-0.5); Lymphocytes Absolute Auto 1.07 K/mm3 (0.9-3.2); Lymphocytes Percent Auto 11.8 % (18.3-44.2); Mean Corpuscular HGB Conc 32.3 g/dl (32-36); Mean Corpuscular Hemoglobin 28.4 pg (26-34); Mean Corpuscular Volume 87.8 fl (80-100); Mean Platelet Volume 11.8 fl (7.4-10.4); Monocytes Absolute Auto 0.2 K/mm3 (0.1-0.6); Monocytes Percent Auto 2.4 % (2.6-8.5); Neutrophils Absolute Auto 7.7 K/mm3 (1.3-6.7); Neutrophils Percent Auto 85.3 % (45.5-73.1); Platelet Count Result 268 k/mm3 (150-375); Red Blood Count 4.19 M/mm3 (4.2-5.4); White Blood Count 9.1 K/mm3 (4.5-10.0)
[2024-12-12 02:34] LABS: Alanine Aminotransferase 217 U/L (6-35); Albumin Level 4.4 g/dL (3.5-5.1); Alkaline Phosphatase 153 U/L (38-126); Anion Gap 11 mmol/L (4-12); Aspartate Amino Transferase 274 U/L (14-36); Bilirubin,Total 1.3 mg/dL (0.2-1.3); Blood Urea Nitrogen 8 mg/dL (7-17); Calcium 9.6 mg/dL (8.4-10.2); Carbon Dioxide 26 mmol/L (22-30); Chloride 104 mmol/L (98-107); Estimated CRCL calculation 132 ml/min; Estimated Glomerular Filt Rate > 60; Glucose 109 mg/dL (65-110); Lipase 71 U/L (23-300); Potassium 4.4 mmol/L (3.4-5.0); Sodium 141 mmol/L (137-145)
[2024-12-12 03:50] LABS: BEDSIDEPREGUCG Negative (Negative)
--- NOTE | 2024-12-12 04:43 | ED.GENADULT ---
HPI - General Adult General Chief complaint: Back Pain/Injury Stated complaint: 4wksPP, mid-upper back pain, vomiting Time Seen by Provider: 12/12/24 01:27 History of Present Illness HPI narrative: This is a 29-year-old female at 4 weeks from an emergency for twins presenting with epigastric pain. Patient says that over the last 2 days at 9:00 p.m. she has developed epigastric pain that wraps around her torso radiating from the front to the back. This made her nauseous and after having episode of vomiting her symptoms have improved. Pain happened after she had had a grilled cheese sandwich tonight. Patient denies fevers chills, chest. Difficulty breathing or diarrhea. No history of biliary colic. No headaches with lower extremity edema. The patient has twins recently returned home after the NICU stay. Related Data Allergies Allergy/AdvReac Type Severity Reaction Status Date / Time No Known Allergies Allergy Verified 12/11/24 23:51 Exam Narrative: APPEARANCE: No apparent distress. Head: atraumatic. EYES: EOMI, NOSE: Atraumatic NECK: Trachea midline RESPIRATORY: No increased rate of breathing CTAB CARDIOVASCULAR: RRR, ABDOMINAL: Obese, nontender, no guarding or rebound, scar is healing well MUSCULOSKELETAl: No obvious deformities NEURO: Alert. Moving 4/4 extremities SKIN:: Warm, dry. Normal color PSYCHIATRIC: Normal affect Course Vital Signs Vital signs: Vital Signs Temperature 97.9 F 12/11/24 23:43 Pulse Rate 88 12/11/24 23:43 Respiratory Rate 18 12/11/24 23:43 Blood Pressure 130/90 12/11/24 23:43 Pulse Oximetry 100 12/11/24 23:43 Oxygen Delivery Room Air 12/11/24 23:43 Temperature 97.9 F 12/11/24 23:43 Pulse Rate 86 12/12/24 02:11 Respiratory Rate 19 12/12/24 02:11 Blood Pressure 130/84 12/12/24 02:11 Pulse Oximetry 99 12/12/24 02:11 Oxygen Delivery Room Air 12/11/24 23:43 Medical Decision Making [facility] Narrative Medical decision making narrative: -Course: 29-year-old female who is 4 weeks for emergency presenting with epigastric pain, nausea and vomiting. Abdominal exam is benign and she has no symptoms at this time. Point of care ultrasound showed multiple gallstones. Negative sonographic Huynh sign. CT abdomen pelvis interpreted by stat read as moderately distended gallbladder with borderline gallbladder wall thickening. Patient has mild elevations in AST and ALT. I reached out to [facility] to see if she had elevated liver enzymes at delivery and they were negative at that time. BPs are normal. HGB is uptrending from delivery. Platelets are normal. Less concern for post pre-eclampsia/HELLP. Case was discussed with Dr. Alanis. Options included admission to the hospital for surgical evaluation versus discharge home with strict return precautions and close outpatient follow-up. I discussed this with the patient. Both of her twins have recently returned home, and it is [birth year] today. She does not want to be admitted to the hospital. She is currently asymptomatic, with stable vital signs and a benign abdominal exam. She is comfortable going home, eating a low/no-fat diet and calling the clinic on Friday to arrange outpatient follow-up. Risks of going home were discussed with the patient and her family member at length. Return precautions were given. Patient provided medications for symptom control. Both patient and her family member have verbalized their understanding and agreement with the plan. -DDX includes but is not limited to: Gastritis, gallbladder disease, postop complication, preeclampsia, HELLP syndrome Vital Signs Vital Signs: Vital Signs Temperature 97.9 F 12/11/24 23:43 Pulse Rate 88 12/11/24 23:43 Respiratory Rate 18 12/11/24 23:43 Blood Pressure 130/90 12/11/24 23:43 Pulse Oximetry 100 12/11/24 23:43 Oxygen Delivery Room Air 12/11/24 23:43 Temperature 97.9 F 12/11/24 23:43 Pulse Rate 86 12/12/24 02:11 Respiratory Rate 19 12/12/24 02:11 Blood Pressure 130/84 12/12/24 02:11 Pulse Oximetry 99 12/12/24 02:11 Oxygen Delivery Room Air 12/11/24 23:43 Lab Data 12/12/24 02:13 12/12/24 02:13 Labs: Lab Results 12/12/24 12/12/24 Range/Units 02:13 03:49 WBC 9.1 (4.5-10.0) K/mm3 RBC 4.19 L (4.2-5.4) M/mm3 Hgb 11.9 L (12.0-15.0) g/dL Hct 36.8 L (37.0-47.0) % MCV 87.8 (80-100) fl MCH 28.4 (26-34) pg MCHC 32.3 (32-36) g/dl RDW 13.0 (11.5-14.5) % Plt Count 268 (150-375) k/mm3 MPV 11.8 H (7.4-10.4) fl Immature Gran % (Auto) 0.2 (0-0.5) % Neut % (Auto) 85.3 H (45.5-73.1) % Lymph % (Auto) 11.8 L (18.3-44.2) % [place] % (Auto) 2.4 L (2.6-8.5) % Eos % (Auto) 0.0 (0-4.4) % Baso % (Auto) 0.3 (0.2-1.2) % Lymph # (Auto) 1.07 (0.9-3.2) K/mm3 [place] # (Auto) 0.2 (0.1-0.6) K/mm3 Eos # (Auto) 0.0 (0-0.3) K/mm3 Baso # (Auto) 0.0 (0.0-0.1) K/mm3 Abs Immat Gran (auto) 0.02 (0.00-0.031) K/mm3 Absolute Neuts (auto) 7.7 H (1.3-6.7) K/mm3 Absolute Nucleated RBC 0.000 (0.0-0.012) K/mm3 Nucleated RBC % 0.0 (0.0-0.2) % Sodium 141 (137-145) mmol/L Potassium 4.4 (3.4-5.0) mmol/L Chloride 104 (98-107) mmol/L Carbon Dioxide 26 (22-30) mmol/L Anion Gap 11 (4-12) mmol/L BUN 8 (7-17) mg/dL Creatinine 0.57 L (0.7-1.0) mg/dL Estim Creat Clear Calc 132 ml/min Estimated GFR > 60 (59 - ) Glucose 109 (65-110) mg/dL Calcium 9.6 (8.4-10.2) mg/dL Total Bilirubin 1.3 (0.2-1.3) mg/dL AST 274 H (14-36) U/L ALT 217 H (6-35) U/L Alkaline Phosphatase 153 H (38-126) U/L Total Protein 7.0 (6.3-8.2) g/dL Albumin 4.4 (3.5-5.1) g/dL Lipase 71 (23-300) U/L POC Urine HCG, Qual Negative (Negative) Discharge Plan Discharge Clinical Impression: Biliary colic Patient Disposition: Home, Self-Care Condition: Guarded Prognosis Instructions: Antibiotic Form, Biliary Colic (ED) Additional Instructions: You were seen in the emergency department for abdominal pain. I suspect this is due to biliary colic. Please eat a low fat diet. Please use Zofran for nausea and Tylenol for pain control. If you develop severe abdominal pain, fevers, or intractable nausea vomiting I want you to return to the emergency department immediately. Otherwise please call Dr. Alanis's office first thing friday to arrange follow up. Patient Language: Persian Prescriptions: New ibuprofen 800 mg tablet 800 mg PO TID PRN (Reason: pain) 7 Days Qty: 21 0RF acetaminophen 500 mg tablet 1,000 mg PO TID PRN (Reason: mandi) 7 Days Qty: 42 0RF ondansetron 4 mg tablet,disintegrating 4 mg PO Q8H PRN (Reason: nausea and vomiting) Qty: 30 0RF Follow-up/Referrals: UNKNOWN,DOCTOR [Primary Care Provider] - Chi Alanis DO [Physician] - 1 Day (Biliary colic)
[2024-12-12 05:30] LABS: Lactate Dehydrogenase 373 U/L (120-246)
[2024-12-12 05:40] LABS: Add Urine Microscopic? NO; Appearance Urine Clear (Clear); Bilirubin Urine Negative (Negative); Blood Urine Negative (Negative); Color Urine Yellow (Yellow); Glucose Urine UA Negative (Negative); Ketones Urine Negative (Negative); Leukocyte Esterase Ur Negative LEU/UL (Negative); Nitrate Urine Negative (Negative); Protein Urine Negative (Negative); Specific Grav Ur > 1.045 (1.001-1.035); Urobilinogen Urine 0.2 mg/dL (<2.0); pH Urine 7.5 (5.0-9.0)
== END 2024-12-12 06:24 | disposition home or self-care (01) ==
PROVIDERS: Emergency Provider Emergency Medicine
DX: O99.63 Diseases of the digestive system complicating the puerperium (principal); K80.50 Calculus of bile duct without cholangitis or cholecystitis without obstruction
CPT/HCPCS: 36415; 71045; 74177; 80053; 81003; 81025; 83615; 83690; 85025; 96361; 96374; 99284; Q9967